=== PATIENT | male | born 1955 | race Caucasian/White ===

== ENCOUNTER 2019-06-09 18:41 | Outpatient (REF) | payer OTHER, SELFPAY ==
[2019-06-09 19:06] LABS: Anion Gap 11.2 mmol/L (3-11); BUN 14 mg/dL (7-18); CO2 26.8 mmol/L (21.0-32.0); Calcium 8.9 mg/dL (8.5-10.1); Calculated LDL 145 mg/dL; Chloride 104 mmol/L (98-107); Cholesterol 223 mg/dL (50-200); Glucose 93 mg/dL (70-100); HDL Cholesterol 66 mg/dL (40-60); Potassium 3.7 mmol/L (3.5-5.1); Sodium 142 mmol/L (136-145); Triglyceride 61 mg/dL (30-150)
[2019-06-12 10:59] LABS: Hepatitis C Ab w Rflx HCV PCR Negative (NEGAT)
== END 2019-06-09 19:01 ==
LOC: LBN 18:41
PROVIDERS: PCP Internal Medicine; Visit Provider Family Medicine
DX: Z00.00 Encounter for general adult medical examination without abnormal findings (principal); Z13.1 Encounter for screening for diabetes mellitus; Z13.228 Encounter for screening for other metabolic disorders; Z13.220 Encounter for screening for lipoid disorders; Z11.59 Encounter for screening for other viral diseases
CPT/HCPCS: 80048; 80061; 86803; 83036

== ENCOUNTER 2019-06-13 10:12 | Outpatient (CLI) | payer OTHER, SELFPAY ==
--- NOTE | 2019-06-13 10:34 | DI.RAD_ITS ---
EXAM: XR HIP LT COMPLETE AP PELVIS INDICATION: HIP JOINT PAIN [id number]. COMPARISON: No exams were available for comparison TECHNIQUE: 2D digital imaging was performed. FINDINGS: The bony structures are normally mineralized. The joint spaces intact. No soft tissue abnormality i s seen. IMPRESSION: The examination appears within normal limits.
== END 2019-06-13 10:32 ==
PROVIDERS: PCP Internal Medicine; Visit Provider Family Medicine
DX: M25.552 Pain in left hip (principal)
CPT/HCPCS: 73502